=== PATIENT | female | born 1950 | race Caucasian/White ===

== ENCOUNTER 2022-06-25 06:55 | Day surgery (SDC) | payer MEDICARE, OTHER ==
[2022-06-25] VITALS (15 sets, daily range): BP systolic 101–169; BP diastolic 59–86
[~2022-06-25] VITALS: Ht 162.6 cm; Wt 65.1 kg
[2022-06-25] MEDS ORDERED: normal saline 1000ml 1,000 ML IV PRN (07:25)
[2022-06-25] MEDS ORDERED: albumin 25% 100mL bottle x 1 IV PRN (07:25)
[2022-06-25] MEDS ORDERED: ATOR10TA70 PO (07:52)
[2022-06-25] MEDS ORDERED: METO-384 PO (07:52)
[2022-06-25] MEDS ORDERED: LEVO88TA7 PO (07:52)
[2022-06-25] MEDS ORDERED: FISH1CAP17 PO (07:52)
[2022-06-25] MEDS ORDERED: CALC-1051 PO (07:52)
[2022-06-25 07:56] LABS: BASOPHILS % (AUTO) 0.6 % (0-1); EOSINOPHILS % (AUTO) 0.2 % (0-6); HEMATOCRIT 42.8 % (35.0-45.0); HEMOGLOBIN 14.2 g/dl (12.0-16.0); LYMPHOCYTES # (AUTO) 1.1 X10'3 (1.1-4.8); LYMPHOCYTES % (AUTO) 23.7 % (21-51); MEAN CORPUSCULAR HEMOGLOBIN 28.9 PG (27.0-31.0); MEAN CORPUSCULAR HGB CONC 33.3 g/dL (33.0-36.5); MEAN CORPUSCULAR VOLUME 86.7 FL (78-98); MEAN PLATELET VOLUME 8.9 FL (7.4-10.4); MONOCYTES # (AUTO) 0.6 X10'3 (0-0.9); MONOCYTES % (AUTO) 13.2 % (2-12); NEUTROPHILS # (AUTO) 2.8 X10'3 (1.8-7.7); NEUTROPHILS % (AUTO) 62.3 % (42-75); PLATELET COUNT 134 X10'3 (140-440); RED BLOOD COUNT 4.93 X10'6 (4.20-5.60); RED CELL DISTRIBUTION WIDTH 13.4 % (11.5-14.5); WHITE BLOOD COUNT 4.5 X10'3 (4.5-11.0)
[2022-06-25] MEDS ORDERED: fentaNYL/PF 50MCG/1 ML 2ML syringe ONE (09:03)
[2022-06-25] MEDS ORDERED: midazolam 1 mg/ML 2ml injection ONE (09:03)
[2022-06-25] MEDS ORDERED: LIDOcaine 1% (10mg/ml) 2ml vial ONE (09:03)
== END 2022-06-25 13:20 | disposition home or self-care (01) ==
LOC: SSTAY O 06:55
PROVIDERS: ATTEND Radiology Vascular & Interventional Radiology
DX: R91.1 Solitary pulmonary nodule (principal); Z79.01 Long term (current) use of anticoagulants; Z79.899 Other long term (current) drug therapy; Z88.0 Allergy status to penicillin; Z88.8 Allergy status to other drugs, medicaments and biological substances
CPT/HCPCS: 32408; 36415; 71045; 85025; 85610; 99152; 99153; J2250; J3010; J7030; 77012; A4421; A4615; A6258; A6449; C1729; C1769; J3490